=== PATIENT | female | born 1975 | race Caucasian/White ===

== ENCOUNTER 2022-11-16 11:36 | Day surgery (SDC) | payer OTHER, SELFPAY ==
[2022-11-04 10:31] VITALS: BMI 25.0
--- NOTE | 2022-11-16 09:45 | P.PNAN_ITS ---
Anes - Initial Pre Proc Eval Procedure: Operation Date: 11/16/22 14:00 Proposed Procedures p Screening Colonoscopy - Samm Hinds MD Date/Time: 11/16/22 09:45 Surgeon: Samm Hinds MD Pre Op Diagnosis: Neoplasm Screening and Family History Colon Polys Patient Data Age: 47 Gender: F Height: 1.6 m Weight: 64 kg Allergies Allergy/AdvReac Type Severity Reaction Status Date / Time Penicillins Allergy Severe Other Unverified 11/16/22 12:39 Home Medications Medication Instructions Recorded Confirmed Type semaglutide 1 mg/dose (4 mg/3 mL) 1 mg subcut WEEKLY 11/04/22 11/16/22 History subcutaneous pen injector (Ozempic) Patient hx anesthesia problems: none Family hx anesthesia problems: none Results Review: All pre-operative results and documents have been reviewed as part of the pre- operative evaluation. PMF Social History Social History Smoking status: Never smoker Alcohol intake: current Substance use: never Substance use type: does not use Living arrangements: with family Spiritual care concerns: No Anes - Eval Final PreProcedure Day of Procedure 11/16/22 09:45 Patient weight: overweight Heart: regular rate and rhythm Lungs: clear to auscultation and normal air movement Airway: Mallampati scale class II Neurological: alert and oriented Last oral intake: >/= 8 hours ASA classification: II Emergent: no Anesthetic plan: proceed Anesthesia type and monitoring: general GIVS Results Review: All pre-operative results and documents have been reviewed as part of the pre- operative evaluation. Informed Consent: The patient's anesthetic plan and its attendant risks and benefits were discussed with the patient/family/POA. Questions were solicited and answers provided to the satisfaction of the patient/family/POA.
[2022-11-16 12:35] VITALS: BP 127/79; PULSE 68; RESP 20; TEMP 36.7; O2SAT 100
[2022-11-16] MEDS: LACTATED RINGERS 1,000 ML 150 ML IV CONT (12:57)
--- NOTE | 2022-11-16 13:38 | PM.HPGS ---
History of Present Illness History of Present Illness Consent: Risks, benefits, and alternatives have been discussed and questions answered. Patient agrees to proceed with procedure. Chief complaint: Neoplasm Screening and Family History Colon Polys Narrative: Jose Lemus is a 47 year old female here for first screening colonoscopy Review of Systems Constitutional: Constitutional: Denies headache(s) and Denies weakness Eyes: Eyes: Denies blurry vision ENT: Reports Normal hearing present, Denies headache(s) and Denies neck pain Cardiovascular: Cardiovascular: Denies chest pain and Denies dyspnea Respiratory: Respiratory: Denies dyspnea Gastrointestinal: Gastrointestinal: Reports no additional gastrointestinal complaints Genitourinary: Genitourinary: Denies dysuria Musculoskeletal: Musculoskeletal: Denies neck pain Integumentary/Breasts: Skin/Breast: Denies dry skin Neurologic: Reports Normal hearing present, Denies headache(s) and Denies weakness Psychiatric: Psychiatric: Denies anxiety Endocrine: Endocrine: Denies change in body appearance Hematologic/Lymphatic: Hematologic/Lymphatic: Denies easy bleeding Allergic/Immunologic: Allergic/Immunologic: Denies urticaria PMFSH Past Medical History Medical History (Updated 11/16/22 @ 13:39 by Samm Hinds MD) Colon cancer screening Social History Social History Smoking status: Never smoker Alcohol intake: current Substance use: never Substance use type: does not use Living arrangements: with family Spiritual care concerns: No Meds Home Medications and Allergies Home Medications Medication Instructions Recorded Confirmed Type semaglutide 1 mg/dose (4 mg/3 mL) 1 mg subcut WEEKLY 11/04/22 11/16/22 History subcutaneous pen injector (Ozempic) Allergies Allergy/AdvReac Type Severity Reaction Status Date / Time Penicillins Allergy Severe Other Verified 11/16/22 12:57 Vital Signs Vital Signs - 24 hr 11/16/22 12:35 Temperature 98.1 F Pulse Rate 68 Respiratory Rate 20 Blood Pressure 127/79 Pulse Oximetry 100 Oxygen Delivery Room Air Exam Const: General: comfortable and no acute distress HENMT: Face/Nose/Sinus: Normal nares present Eyes: General: appearance normal, both eyes and all related structures Neck: Neck: no JVD Resp: Auscultation: clear to auscultation bilaterally Cardio: Rate: regular rate Rhythm: regular rhythm GI: Inspection: non-distended GI Palp: Yes Soft to palpation Skin: General skin exam: normal color Neuro: General: gait normal Speech: normal speech Extrem: General: normal to inspection Psych: Mental Status: mental status grossly normal Assessment and Plan Assessment and plan (1) Colon cancer screening: Code(s): Z12.11 - Encounter for screening for malignant neoplasm of colon Status: Acute Assessment and Plan: colonoscopy
[2022-11-16 14:01] VITALS: BP 99/65; PULSE 74; RESP 16; O2SAT 99
[2022-11-16 14:11] VITALS: BP 120/81; PULSE 75; RESP 16; O2SAT 99
--- NOTE | 2022-11-16 14:14 | WPDANESPN ---
Anes - Prog Note Post-Op Date/Time: 11/16/22 14:14 Cardiovascular status: normal Respiratory status: normal Airway patency: baseline Mental status: baseline Post-Op hydration status: normal Vital Signs: Last Vital Signs Temp 36.7 C 11/16/22 12:35 Pulse 68 11/16/22 12:35 Resp 20 11/16/22 12:35 BP 127/79 11/16/22 12:35 Pulse Ox 100 11/16/22 12:35 O2 Del Method Room Air 11/16/22 12:35 Pain Score (VAS): 0 I/O: Intake & Output 11/15/22 11/16/22 11/16/22 23:59 07:59 15:59 Intake Total 300 Balance 300 Post-procedural complaints: none Patient Feedback: Patient satisfied with anesthetic care.
--- NOTE | 2022-11-16 14:15 | SUR.PHASEII ---
PT AWAKE AND ALERT. DENIES PAIN. DRINKING WHITE SODA. TEXTING SPOUSE.
[2022-11-16 14:21] VITALS: BP 127/83; PULSE 54; RESP 16; O2SAT 99
== END 2022-11-16 14:38 | disposition home or self-care (01) ==
PROVIDERS: PCP Family Medicine; Visit Provider Internal Medicine Gastroenterology
PROC: 0DJD8ZZ Inspection of Lower Intestinal Tract, Via Natural or Artificial Opening Endoscopic (ICD-10-PCS; CPT 45378; principal; 2022-11-16 14:00)
DX: Z12.11 Encounter for screening for malignant neoplasm of colon (principal)
CPT/HCPCS: 45378

== ENCOUNTER → 2023-12-13 13:38 | Outpatient (CLI) | payer OTHER, SELFPAY ==
--- NOTE | ~2023-12-13 | MM_ITS ---
EXAMINATION: MM screening ehsan BI w rodger HISTORY: Screening TECHNIQUE: Craniocaudal and mediolateral oblique 3-D tomosynthesis images were obtained and synthetic 2-D images were generated. CAD analysis was submitted and interpreted. COMPARISON: Comparison to multiple prior studies sequentially, with oldest reviewed study dated 02/03. BREAST PARENCHYMAL COMPOSITION: Not dense: There are scattered areas of fibroglandular density. FINDINGS: There is a new mass in the upper inner quadrant of the right breast anteriorly. The left br east is stable without evidence for malignancy. IMPRESSION: 1. New right breast mass. 2. Additional mammographic views and possible breast ultrasound are recommended. BI-RADS Category 0: Incomplete: Needs additional imaging evaluation. Reviewed, dictated and finalized at location A. H MIXING MACHINE OPERATOR IMPRESSION: 1. New right breast mass. 2. Additional mammographic views and possible breast ultrasound are recommended . BI-RADS Category 0: Incomplete: Needs additional imaging evaluation.
== END ==
PROVIDERS: PCP Physician Assistant; Visit Provider Physician Assistant
DX: Z12.31 Encounter for screening mammogram for malignant neoplasm of breast (principal); R92.8 Other abnormal and inconclusive findings on diagnostic imaging of breast
CPT/HCPCS: 77063; 77067

== ENCOUNTER 2024-01-30 09:32 | Outpatient (CLI) | payer OTHER, SELFPAY ==
--- NOTE | ~2024-01-30 | MMUS_ITS ---
EXAMINATION: MM diagnostic ehsan RT w rodger, US breast RT limited HISTORY: New right breast mass reported on December 13, 2023 screening mammogram examination TECHNIQUE: Additional 3-D tomosynthesis images of the right breast were performed and synthetic 2-D i mages were generated. CAD analysis was submitted and interpreted. High resolution upper inner and low er inner quadrant right breast ultrasound was performed. COMPARISON: December 13, 2023 bilateral screening mammogram FINDINGS: MAMMOGRAPHIC FINDINGS: There is a low-density circumscribed 4.5 mm mass in the inner aspect of the right breast best demonst rated on craniocaudal projection. ULTRASOUND: At 2:00 subareolar area there is an irregular shaped 4.6 x 6.9 x 4.9 mm circumscribed hypoechoic lesi on, without internal vascularity or posterior shadowing. An irregular developing mass in a 49-year-ol d patient is of concern.Ultrasound-guided biopsy of the right breast 2:00 lesion is recommended. IMPRESSION: 1. 6.9 mm mildly irregular mass at 2:00 subareolar area 2. Ultrasound-guided biopsy of right breast lesion is recommended BI-RADS category 4, suspicious findings. Dr. Tello telephoned the report and the ultrasound-guided biopsy recommendation for the right 2:00 sub areolar mass on January 30, 2024 at 1208 hours to Jinny Quach. Reviewed, dictated and finalized at location A. IMPRESSION: 1. 6.9 mm mildly irregular mass at 2:00 subareolar area 2. Ultrasound-guided biopsy of right breast lesion is recommended BI-RADS category 4, suspicious findings. Dr. Tello telephoned the report and the ultrasound-guided biopsy recommendation for the right 2:00 subareolar mass on January 30, 2024 at 1208 hours to Jinny pereyra. IMPRESSION: 1. 6.9 mm mildly irregular mass at 2:00 subareolar area 2. Ultrasound-guided biopsy of right breast lesion is recommended BI-RADS category 4, suspicious findings. Dr. Tello telephoned the report and the ultrasound-guided biopsy recommendation for the right 2:00 subareolar mass on January 30, 2024 at 1208 hours to Jinny carpenter
== END 2024-01-30 09:33 ==
PROVIDERS: PCP Physician Assistant; Visit Provider Physician Assistant
DX: N63.10 Unspecified lump in the right breast, unspecified quadrant (principal); R92.8 Other abnormal and inconclusive findings on diagnostic imaging of breast
CPT/HCPCS: 76642; 77061; 77065; G0279

== ENCOUNTER 2024-03-13 08:22 | Outpatient (CLI) | payer OTHER, SELFPAY ==
--- NOTE | ~2024-03-13 | US_ITS ---
US breast RT limited 03/13/2024 09:43 Indication: Mass identified on prior examination. Biopsy recommended. Procedure: High-resolution Limited ultrasound of the right breast Comparison: Ultrasound dated 01/30/2024 Findings: At 2:00 in the subareolar location of the right breast there is an 8 anechoic 7 mm mass, co nsistent with a cyst. No suspicious posterior shadowing or associated vascularity. No other suspiciou s masses are seen. Impression: 1: Probable benign cyst of the right breast at 2:00 in the subareolar location. Biopsy canceled. Chivo mmend 6 month follow-up Limited right breast ultrasound. BI-RADS CATEGORY 3-PROBABLY BENIGN FINDING Reviewed, dictated and finalized at location A. Impression: 1: Probable benign cyst of the right breast at 2:00 in the subareolar location. Biopsy canceled. Recommend 6 month follow-up Limited right breast ultrasound. BI-RADS CATEGORY 3-PROBABLY BENIGN FINDING
== END 2024-03-13 08:23 | disposition home or self-care (01) ==
LOC: ANHIMG 08:25
PROVIDERS: PCP Physician Assistant; Visit Provider Physician Assistant
DX: N63.41 Unspecified lump in right breast, subareolar (principal)
CPT/HCPCS: 76642

== ENCOUNTER 2025-06-10 08:14 | Outpatient (CLI) | payer OTHER, SELFPAY ==
--- NOTE | ~2025-06-10 | MMUS_ITS ---
EXAMINATION: MM diagnostic ehsan BI w rodger, US breast RT limited HISTORY: Six-month follow-up of right breast TECHNIQUE: 3-D tomosynthesis images of the breasts were performed and synthetic 2-D images were generated. CAD analysis was submitted and interpreted. High resolution limited right breast ultrasound was performed. COMPARISON: 01/30/2024, 12/13/2023 BREAST PARENCHYMAL COMPOSITION:Not Dense. There are scattered areas of fibroglandular density. FINDINGS: MAMMOGRAPHIC FINDINGS: Mammographic pattern is similar to prior exam. Previously noted right breast masses no longer clearly visible. No suspicious mass or distortion seen in either breast. No suspicious microcalcifications. ULTRASOUND: There is a stable 4 mm cyst at the 2:00 position right breast subareolar region. IMPRESSION: No evidence for malignancy. Stable 4 mm cyst at the 2:00 position right breast subareolar region. BI-RADS Category 2: Benign finding(s). Reviewed, dictated and finalized at location . IMPRESSION: No evidence for malignancy. Stable 4 mm cyst at the 2:00 position right breast subareolar region. BI-RADS Category 2: Benign finding(s).
== END 2025-06-10 08:15 | disposition home or self-care (01) ==
LOC: MICIMG 08:16
PROVIDERS: PCP Family Medicine; Visit Provider Family Medicine
DX: R92.8 Other abnormal and inconclusive findings on diagnostic imaging of breast (principal); N60.01 Solitary cyst of right breast
CPT/HCPCS: 76642; 77062; 77066; G0279